=== PATIENT | male | born 1980 ===

== ENCOUNTER 2017-06-22 13:49 | Emergency (ER) | payer SELFPAY ==
--- NOTE | 2017-06-22 15:27 | RAD ---
PROCEDURE: CHEST RADIOGRAPH, 1 VIEW HISTORY: Chest pain COMPARISON: None available. FINDINGS: LUNGS: The lungs are well inflated and clear. PLEURA: No pneumothorax or pleural fluid seen. CARDIOVASCULAR: Normal. OSSEOUS STRUCTURES: No significant abnormalities. VISUALIZED UPPER ABDOMEN: Normal. OTHER FINDINGS: None. IMPRESSION: No active pulmonary disease.
--- NOTE | 2017-06-22 15:51 | C.PDOC ---
History Of Present Illness 37 year old male presents to the ED c/o CP and palpitations for the past 4 days. 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 Patient denies any Hx of heart disease, fever, nausea, cough, abdominal pain, back pain , headache, weakness, numbness. Chief Complaint (Nursing): Chest Pain History Per: Patient History/Exam Limitations: no limitations Current Symptoms Are (Timing): Still Present Associated Symptoms: denies: Nausea, Dyspnea, Diaphoresis Alleviating Factors: None Recent travel outside of the [place]: No Additional History Per: Patient Past Medical History Reviewed: Historical Data, Nursing Documentation, Vital Signs Vital Signs: Last Vital Signs Temp 98.8 F 06/22/17 17:32 Pulse 87 06/22/17 17:32 Resp 18 06/22/17 17:32 BP 149/86 06/22/17 17:32 Pulse Ox 99 06/22/17 17:32 - Medical History PMH: No Chronic Diseases Surgical History: No Surg Hx Family History: States: Unknown Family Hx - Social History Hx Alcohol Use: Yes Hx Substance Use: No - Immunization History Hx Influenza Vaccination: No Review Of Systems Constitutional: Negative for: Fever, Chills Cardiovascular: Positive for: Chest Pain, Palpitations Respiratory: Positive for: Shortness of Breath. Negative for: Cough Gastrointestinal: Negative for: Nausea, Vomiting, Abdominal Pain Skin: Negative for: Rash Neurological: Negative for: Weakness, Numbness Physical Exam - Physical Exam Appears: Non-toxic, No Acute Distress Skin: Normal Color, Warm, Dry Head: Atraumatic, Normacephalic Nose: No Discharge Oral Mucosa: Moist Neck: Normal ROM, Supple Chest: Symmetrical Cardiovascular: Rhythm Regular, No Murmur Respiratory: Normal Breath Sounds, No Rales, No Rhonchi, No Wheezing Gastrointestinal/Abdominal: Soft, No Tenderness Extremity: Normal ROM, No Pedal Edema, No Calf Tenderness, No Swelling Neurological/Psych: Oriented x3, Normal Speech, Normal Cognition ED Course And Treatment - Laboratory Results Result Diagrams: 06/22/17 15:52 06/22/17 15:52 ECG: Interpreted By Me, Viewed By Me ECG Rhythm: Sinus Tachycardia Interpretation Of ECG: EKG sinus tach at 102 with normal axis, normal intervals Rate From EC O2 Sat by Pulse Oximetry: 100 Pulse Ox Interpretation: Normal - Radiology CXR: Interpreted by Me, Viewed By Me CXR Interpretation: No: No Acute Disease, Infiltrates Medical Decision Making Medical Decision Making: Plan: * EKG ordered * Blood work ordered * CXR ordered Disposition - Disposition Referrals: [facility] [Outside] [facility] [Outside] Disposition: HOME/ ROUTINE Disposition Time: 16:45 Condition: GOOD Additional Instructions: Thank you for letting us take care of you today. The emergency medical care you received today was directed at your acute symptoms. If you were prescribed any medication, please fill it and take as directed. It may take several days for your symptoms to resolve. Return to the Emergency Department if your symptoms worsen, do not improve, or if you have any other problems. Please contact your doctor or call one of the physicians/clinics you have been referred to that are listed on the Patient Visit Information form that is included in your discharge packet. Bring any paperwork you were given at discharge with you along with any medications you are taking to your follow up visit. Our treatment cannot replace ongoing medical care by a primary care provider (PCP) outside of the emergency department. Thank you for allowing the [facility] team to be part of your care today. Followup with the clinic in 2-3 days for re-evaluation and further management. Barrie por dejarnos atenderlo hoy. La atencin mdica de emergencia que recibi hoy estaba dirigida a chrissie sntomas agudos. Si le prescribieron algn medicamento, llnelo y tome segn las indicaciones. Chrissie sntomas pueden tardar varios garcía en resolverse. Regrese al Departamento de Emergencia si chrissie s ntomas empeoran, no mejoran o si tiene algn otro problema. Comunquese con sears mdico o llame a donal de los mdicos / clnicas a los que harvey sido referido que figura en el formulario de Informacin de visita del paciente que se incluye en sears paquete de maricarmen. Traiga todos los documentos que recibi al momento del maricarmen junto con los medicamentos que est tomando en sears visita de seguimiento. Nuestro tratamiento no puede reemplazar la atencin mdica en curso por parte de un proveedor de atencin primaria (PCP) fuera del departamento de emergencias. Barrie por permitir que el equipo de [facility] sea parte de sears cuidado hoy. Seguimiento con la clnica en 2-3 garcía para mary ann nueva evaluacin y mary ann mayor administracin. Instructions: Noncardiac Chest Pain (ED) Forms: Gen Discharge Inst Guinean Print Language: QATARI - Clinical Impression Clinical Impression: Non-cardiac chest pain - Scribe Statement The provider has reviewed the documentation as recorded by the Scribe Raymon Villarreal All medical record entries made by the Scribe were at my direction and personally dictated by me. I have reviewed the chart and agree that the record accurately reflects my personal performance of the history, physical exam, medical decision making, and the department course for this patient. I have also personally directed, reviewed, and agree with the discharge instructions and disposition.
[2017-06-22 15:57] LABS: BASO % 0.2 % (0.0-2.0); EOS % 0.1 % (0.0-4.0); HEMATOCRIT 41.6 % (35.0-51.0); LYMPH # 0.8 K/uL (1.0-4.3); LYMPH % 6.7 % (20.0-40.0); MEAN CELL VOLUME 94.4 fL (80.0-94.0); MEAN CORPUSCULAR HEMOGLOBIN 32.5 pg (27.0-31.0); MEAN CORPUSCULAR HGB CONC 34.4 g/dL (33.0-37.0); MEAN PLATELET VOLUME 8.2 fL (7.2-11.7); MONO # 0.7 K/uL (0.0-0.8); MONO % 6.2 % (0.0-10.0); PLATELET COUNT 233 K/uL (130-400); RED CELL DISTRIBUTION WIDTH 12.5 % (11.5-14.5); WHITE BLOOD COUNT 11.5 K/uL (4.8-10.8)
[2017-06-22 16:13] LABS: ALKALINE PHOSPHATASE 115 U/L (38-126); ALT/SGPT 42 U/L (21-72); AST/SGOT 42 U/L (17-59); BILIRUBIN,TOTAL 0.4 mg/dL (0.2-1.3); BLOOD UREA NITROGEN 13 mg/dL (9-20); CALCIUM 9.1 mg/dl (8.6-10.4); CARBON DIOXIDE 29 mmol/L (22-30); CHLORIDE 103 mmol/L (98-107); GFR AFRICAN-AMERICAN > 60; GLUCOSE,RANDOM 134 mg/dL (75-110); POTASSIUM 4.3 mmol/L (3.6-5.2); SODIUM 139 mmol/L (132-148); TOTAL PROTEIN 8.9 g/dL (6.3-8.3)
[2017-06-22 16:49] LABS: THYROID STIMULATING HORMONE 0.63 mIU/L (0.46-4.68)
[2017-06-22 16:50] LABS: NEUTROPHIL 88 % (50-75); TOTAL CELLS COUNTED 100
[2017-06-22 17:33] VITALS: BP 149/86; PULSE 87; RESP 18; TEMP 98.8
[2017-06-22 18:55] VITALS: O2SAT 100
== END 2017-06-22 17:33 | disposition home or self-care (01) ==
LOC: C.ER 13:49
DX: R07.89 Other chest pain (principal)
CPT/HCPCS: 71010; 80053; 84443; 84484; 85025; 85378; 99284; G0480